=== PATIENT | male | born 1950 | race Hispanic/Latino ===

== ENCOUNTER 2017-02-04 06:38 | Day surgery (SDC) | payer MEDICARE ==
[2017-01-25 12:53] VITALS: BMI 29.4
--- NOTE | 2017-02-04 03:59 | HP ---
REASON FOR ADMISSION: Left heart catheterization, possible angioplasty because of abnormal stress test and chest pain. BRIEF CLINICAL HISTORY: Obese, with past medical history of hypertension, hyperlipidemia, active tobacco abuse, having chest pain, dyspnea on exertion, patient underwent a stress test that is abnormal. The patient is scheduled for elective cardiac cath, possible angioplasty. PAST MEDICAL HISTORY: Significant for hypertension, hyperlipidemia, obesity. SOCIAL HISTORY: Active tobacco abuse. ALLERGIES: PENICILLIN. CURRENT MEDICATIONS: The patient is taking lisinopril 10 mg daily, atorvastatin 20 mg daily and amlodipine 5 mg daily. Recent cardiac workup as follows. The patient had echocardiography done dated 01/19/2017 with ejection fraction of 49%, diastolic dysfunction, mild mitral regurgitation, moderate tricuspid regurgitation, RV systolic pressure of 37. Patient had a stress test dated 01/25/2017, Myoview. Patient walked on the treadmill 5 minutes and 3 seconds of Reji protocol and stopped due to shortness of breath, achieved 94% of the predicted heart rate. No ST-T changes. No chest pain, but nuclear scan was abnormal, partially reversible apical inferior defects suspicious of ischemia, ejection fraction 55%. REVIEW OF SYSTEMS: As per HPI. PHYSICAL EXAMINATION: GENERAL: Height of the patient is 6 feet 4 inches, weight of the patient is 242 pounds, body mass index 29.5 kg/m2. VITAL SIGNS: Temperature afebrile, heart rate 64, blood pressure 130/80. HEENT: PERRLA, extraocular muscles intact. NECK: Supple. No carotid bruit. No thyromegaly. CHEST: Clear to auscultation. HEART: S1 and S2 regular. ABDOMEN: Soft. EXTREMITIES: Clubbing and cyanosis negative. LABORATORY DATA: Blood workup pending. IMPRESSION: A 66-year-old male, active tobacco user with hypertension, hyperlipidemia, abnormal stress test, apical and inferolateral reversible ischemia, ejection fraction 55%. Echo shows mild MR, moderate TR, RV systolic pressure of 37, ejection fraction 49%, coronary artery disease, chest pain and shortness of breath. RECOMMENDATIONS: Cardiac catheterization. Further recommendation after cardiac catheterization. We will load with aspirin, Plavix, follow up the lab. If the lab is okay, we will proceed for cardiac catheterization. Further recommendation after cardiac catheterization. Thank you ------ in taking care of patient. We will follow with you. Shan Vital MD [facility] # [id number]
[2017-02-04 07:18] LABS: BASO # 0.01 K/mm3 (0.0-2.0); BASO % 0.2 % (0.0-3.0); EOS # 0.1 (0.0-0.7); EOS % 1.5 % (1.5-5.0); GRAN # 3.76 (1.4-6.5); GRAN % 72.2 % (50.0-68.0); HEMOGLOBIN 12.6 gm/dL (14.0-18.0); MEAN CELL VOLUME 90.7 fL (80.0-105.0); MEAN CORPUSCULAR HEMOGLOBIN 30.8 pg (25.0-35.0); MEAN PLATELET VOLUME 8.4 fl (7.0-11.0); MONO # 0.4 (0.1-0.6); MONO % 7.1 % (1.0-6.0); PLATELET COUNT 169 10^3/uL (120.0-450.0); RBC 4.09 10^6/uL (3.5-6.1); RED CELL DISTRIBUTION WIDTH 13.6 % (11.5-14.5); WHITE BLOOD COUNT 5.2 10^3/ul (4.5-11.0)
[2017-02-04 07:30] LABS: INR 1.04 (0.93-1.08); PARTIAL THROMBOPLASTIN TIME 27.8 Seconds (23.7-30.8); PROTHROMBIN TIME 11.2 Seconds (9.9-11.8)
[2017-02-04 07:31] LABS: BLOOD UREA NITROGEN 17 mg/dL (7-21); CALCIUM 9.4 mg/dL (8.4-10.5); GFR AFRICAN-AMERICAN > 60; GFR NON-AFRICAN AMERICAN > 60; HDL CHOLESTEROL 44 mg/dL (29-60)
[2017-02-04 07:41] LABS: LDL CHOLESTEROL 75 mg/dL (0-129)
[2017-02-04 07:55] VITALS: TEMP 97.4
[2017-02-04] MEDS ORDERED: Nitroglycerin 50mg in D5W 50 MG/250 ML BOTTLE IV ONE (09:14)
[2017-02-04] MEDS ORDERED: Lidocaine 2% Inj (20ml) ONE (09:14)
[2017-02-04] MEDS ORDERED: Iohexol 350mgl/ml 50 ML ONE (09:14)
[2017-02-04] MEDS ORDERED: Midazolam 2 MG/2 ML VIAL ONE (09:46)
[2017-02-04] MEDS ORDERED: Sodium Chloride 0.9% 1,000 ML IV SCH (10:30)
[2017-02-04 10:43] VITALS: RESP 18
[2017-02-04] MEDS ORDERED: Bacitracin 500 Units/gm Oint Foilpak UD TOP ONE (12:16)
[2017-02-04] MEDS ORDERED: Bacitracin 500 Units/gm Oint Foilpak UD ONE (13:10)
[2017-02-04 15:15] VITALS: BP 112/65; PULSE 54; O2SAT 96
--- NOTE | 2017-02-04 16:15 | CARD ---
APPROVED REPORT Procedure(s) performed: Left Heart Catheterization HISTORY The patient is a 66 year-old male with a history of : most recent EF: 55%. (EF Method: RADIONUCLIDE), renal failure , chronic lung disease, tobacco history() : The patient is a former smoker , hypertension , dyslipidemia , cerebrovascular disease . INDICATION The indication(s) include : positive stress test. CASE TECHNIQUE The patient was brought electively to the Cardiac Catheterization Laboratory in a fasting state and was prepped and draped in a sterile manner. The left wrist was infiltrated with 2% Lidocaine subcutaneous anesthesia. A 6 Fr Glidesheath (Radial) sheath was inserted into the left radial artery without difficulty. Coronary angiography was performed using coronary diagnostic catheters. The left coronary system was accessed and visualized with a Diagnostic ,5 Fr JL 4 catheter. The right coronary system was accessed and visualized with a Diagnostic ,5 Fr JR 4 catheter. The left ventricle was accessed and visualized with a 5 Fr Pigtail 145 (Angled) catheter. Closure device was deployed with a Fr TR Band (Large) without any complications. The patient tolerated the procedure well and there were no complications associated with the procedure. Vessel Analysis The patient's coronary anatomy is right dominant. The left main coronary artery is a large size vessel with diffuse calcification noted throughout this vessel and without significant stenosis. There is a 20% stenosis in the mid segment. The left main bifurcates to the left anterior descending and circumflex. The left anterior descending artery is a large size vessel with diffuse calcification noted throughout this vessel and without significant stenosis. Very tortous The first diagonal branch is a small size vessel with diffuse calcification noted throughout this vessel and without significant stenosis. The second diagonal branch is a small size vessel with diffuse calcification noted throughout this vessel and without significant stenosis. The circumflex artery is a large size vessel with diffuse calcification noted throughout this vessel and without significant stenosis. The first obtuse marginal branch is a medium size vessel with diffuse calcification noted throughout this vessel and without significant stenosis. There is a 60% stenosis in the ostial segment. The second obtuse marginal branch is a large size vessel with diffuse calcification noted throughout this vessel and without significant stenosis. The right coronary artery is a medium size vessel with diffuse calcification noted throughout this vessel and without significant stenosis. There is a 30% stenosis in the proximal segment. Left Ventricle The left ventricle is normal in size with normal contractility. There was no cardiomyopathy. The left ventricular ejection fraction is estimated to be 55-60%. The left ventricular end diastolic pressure is 12-14 mmHg. There was no gradient across the aortic valve upon pullback. Conclusion Non Obstructive CAD, limited to Ostial OM1 60% Diffuse Atherosclerotic [place] in coronaries Preserved LV FX. EF-55-60%, EDP-12-14. Recommendations Aggressive Medical TherapyCardiac Risk Reduction Program Weight Loss Reduction Program Add Baby ASA in current regimen CC; drs. Jiménez/ Joo.
== END 2017-02-04 15:07 | disposition home or self-care (01) ==
LOC: CATH 06:38
PROVIDERS: ATTEND Internal Medicine Cardiovascular Disease
DX: I25.10 Atherosclerotic heart disease of native coronary artery without angina pectoris (principal); R07.9 Chest pain, unspecified; E78.5 Hyperlipidemia, unspecified; E66.9 Obesity, unspecified; I12.9 Hypertensive chronic kidney disease with stage 1 through stage 4 chronic kidney disease, or unspecified chronic kidney disease; R94.39 Abnormal result of other cardiovascular function study; I08.1 Rheumatic disorders of both mitral and tricuspid valves; Z68.29 Body mass index [BMI] 29.0-29.9, adult; J44.9 Chronic obstructive pulmonary disease, unspecified; I67.9 Cerebrovascular disease, unspecified; N18.9 Chronic kidney disease, unspecified; Z88.0 Allergy status to penicillin; Z87.891 Personal history of nicotine dependence
CPT/HCPCS: 36415; 80048; 80061; 85025; 85610; 85730; 86850; 86900; 93458; 99152; C1769; C1887 ×2; J1644 ×2; J2250; J3010; J7040 ×2; Q9967